=== PATIENT | female | born 1970 ===

== ENCOUNTER 2024-02-29 14:51 | Emergency (ER) | payer MEDICAID ==
[~2024-02-29] VITALS: Ht 167.6 cm; Wt 113.0 kg
[2024-02-29 15:04] LABS: COVID AG,FIA SOURCE NASAL SWAB
[2024-02-29 15:25] LABS: SARS-COV2 (COVID) ANTIGEN,FIA Negative (Negative)
[2024-02-29 15:26] LABS: INFLUENZA TYPE A NEGATIVE FOR TYPE A (NEGATIVE); INFLUENZA TYPE B NEGATIVE FOR TYPE B (NEGATIVE)
[2024-02-29] MEDS: GuaiFENesin/D-METHORPHAN [SUGAR-FREE] 200-20MG/10 ML SYRUP UDCUP PO ONE (18:43)
[2024-02-29] MEDS: ONDANSETRON 4 MG TABLET PO ONE (18:43)
[2024-02-29] MEDS: ACETAMINOPHEN 325 MG TABLET PO ONE (18:43)
[2024-02-29] MEDS: KETOROLAC TROMETHAMINE 30 MG/ML VIAL IM ONE (18:43)
[2024-02-29 19:22] VITALS: BP 133/75; PULSE 89; RESP 16; TEMP 98.3; O2SAT 98
== END 2024-02-29 19:33 | disposition home or self-care (01) ==
LOC: EMS 14:51
DX: J06.9 Acute upper respiratory infection, unspecified (principal); B97.89 Other viral agents as the cause of diseases classified elsewhere; E78.00 Pure hypercholesterolemia, unspecified; I10 Essential (primary) hypertension; F20.9 Schizophrenia, unspecified; Z88.0 Allergy status to penicillin; Z88.5 Allergy status to narcotic agent; Z20.822 Contact with and (suspected) exposure to COVID-19
CPT/HCPCS: 99284; 87426; 87804; 96372; J1885; Q0162